=== PATIENT | male | born 1970 | race Caucasian/White ===

== ENCOUNTER 2019-04-18 14:47 | Outpatient (CLI) | payer OTHER, SELFPAY ==
--- NOTE | ~2019-04-18 | XR_ITS ---
XR hip LT 2V w AP pelvis DATE: 04/18/2019 15:16 INDICATION: Left anterior hip pain radiating down left leg since February TECHNIQUE: AP pelvis. AP and lateral views of left hip COMPARISON: None FINDINGS: The pubic symphysis and sacroiliac joints are intact. The hip joint spaces are relatively s ymmetric and relatively preserved. No pelvic fracture or left hip fracture or dislocation, avascular necrosis or bone destruction is detected. IMPRESSION: No significant abnormality Reviewed, dictated and finalized at location B. RMINATION SUPERVISOR IMPRESSION: No significant abnormality
== END 2019-04-18 14:48 | disposition home or self-care (01) ==
LOC: ANHIMG 14:53
PROVIDERS: PCP Family Medicine; Visit Provider Physician Assistant
DX: M25.552 Pain in left hip (principal)
CPT/HCPCS: 73502; 73521

== ENCOUNTER 2019-08-23 14:14 | Outpatient (CLI) | payer OTHER, SELFPAY ==
--- NOTE | ~2019-08-23 | MR_ITS ---
EXAMINATION: MR hip LT wo con DATE: 08/23/2019 15:21 INDICATION: Left hip pain. TECHNIQUE: Magnetic resonance imaging (MRI) of the left hip was performed without intravenous contras t. Sequences included axial and coronal PD-weighted FS FSE and axial T1-weighted FSE of the pelvis. S equences of the hip included 2D FIESTA, T1-weighted fast GRE, and axial, coronal, and sagittal PD-renée ghted FS FSE. COMPARISON: Pelvis and left hip radiographs 04/18/2019 FINDINGS: Bones/cartilage: There is 4 degrees levocurvature of lumbar spine. No fracture. There is pitting in the femoral necks bilaterally. There are dysplastic bumps at the junctions of the femoral heads and necks bilaterally. The left hip joint demonstrates cartilage surface irregularity. Labrum: There is a tear of the left acetabular labrum. Fluid: There is no hip joint effusion. There is mild bilateral trochanteric bursitis. Soft tissues: The gluteus minimus and gluteus medius tendons are normal. The iliopsoas tendons are normal. There is mild tendinopathy of right hamstring origin. There is a partial tear of left hamstring origin. IMPRESSION: 1. Mild left hip chondrosis. Tear of left acetabular labrum. Reviewed, dictated and finalized at location A.
== END 2019-08-23 14:15 | disposition home or self-care (01) ==
LOC: ANHIMG 14:17
PROVIDERS: PCP Family Medicine; Visit Provider Physician Assistant
DX: M25.552 Pain in left hip (principal); M25.852 Other specified joint disorders, left hip; S73.192A Other sprain of left hip, initial encounter
CPT/HCPCS: 73721

== ENCOUNTER → 2020-06-28 07:39 | Outpatient (CLI) | payer OTHER, SELFPAY ==
--- NOTE | ~2020-06-28 | XR_ITS ---
EXAMINATION: XR elbow RT min 3V DATE: 06/28/2020 08:51 INDICATION: Right elbow pain TECHNIQUE: Anteroposterior, two oblique and lateral views of the right elbow were obtained. COMPARISON: None. FINDINGS: Alignment is normal. No fracture or joint effusion. Minimal nonuniform joint space narrowing and tiny marginal osteophytes at the ulnotrochlear articulation consistent with mild osteoarthritis. Tiny ole cranon spur. Soft tissues are unremarkable. IMPRESSION: 1. No right elbow joint effusion or acute osseous abnormality. Reviewed, dictated and finalized at location B.
== END ==
PROVIDERS: PCP Family Medicine; Visit Provider Nurse Practitioner Family
DX: M25.521 Pain in right elbow (principal)
CPT/HCPCS: 73080

== ENCOUNTER → 2020-07-07 10:30 | Outpatient (CLI) | payer OTHER, SELFPAY ==
--- NOTE | ~2020-07-07 | MR_ITS ---
EXAMINATION: MR elbow RT wo con DATE: 07/07/2020 11:34 INDICATION: Pain of the muscle, fascia and tendon of the biceps post lifting injury with persistent r ight elbow pain 3 months post lifting injury. TECHNIQUE: Magnetic resonance imaging (MRI) of the right elbow was performed without intravenous cont rast. Sequences included coronal, axial, and sagittal PD-weighted FS FSE and coronal, axial, and sagi ttal PD-weighted FSE. COMPARISON: None FINDINGS: Osseous/other: Normal alignment. Normal marrow signal with no marrow edema, fracture or pathologic marrow replacing process. Mild osteoarthritis with partial thickness cartilage loss and some chondral surface regular ity along the trochlear cartilage of the distal radius. Tendons: Triceps, biceps brachii and brachialis tendons are normal. Common flexor tendon wad is normal. The c ommon extensor tendon wad is normal. Ligaments: The medial and lateral collateral ligament complexes are normal. Cubital tunnel: Cubital tunnel is unremarkable with normal signal and caliber of the ulnar nerve. Fluid: Physiologic amount of fluid the elbow joint. IMPRESSION: 1. Mild right elbow osteoarthritis. Otherwise unremarkable right upper MRI. Reviewed, dictated and finalized at location A.
== END ==
PROVIDERS: Visit Provider Nurse Practitioner Family
DX: S46.211A Strain of muscle, fascia and tendon of other parts of biceps, right arm, initial encounter (principal); X58.XXXA Exposure to other specified factors, initial encounter; M19.021 Primary osteoarthritis, right elbow
CPT/HCPCS: 73221

== ENCOUNTER 2021-06-17 00:11 | Day surgery (SDC) | payer OTHER, SELFPAY ==
[2021-06-07 14:20] VITALS: BMI 32.1
--- NOTE | 2021-06-16 11:38 | WPDANESEPP ---
Anes - Eval Pre Procedure Procedure: Operation Date: 06/17/21 11:00 Proposed Procedures p Screening Colonoscopy - Sebastian Robertson MD Date/Time: 06/16/21 11:38 Surgeon: teetee Pre Op Diagnosis: neoplasm screening Patient Data Age: 50 Gender: M Height: 1.88 m Weight: 113.5 kg Allergies Allergy/AdvReac Type Severity Reaction Status Date / Time No Known Allergies Allergy Verified 06/12/21 14:55 Home Medications Medication Instructions Recorded Confirmed Type amlodipine 5 mg tablet See Rx Instructions .ROUTE 04/08/21 06/12/21 Rx .COMPLEX #90 tablet atorvastatin 10 mg tablet 10 mg PO DAILY #90 tablet 04/08/21 06/12/21 Rx lisinopril 20 mg tablet 20 mg PO DAILY #90 tablet 04/09/21 06/12/21 Rx metoprolol succinate 25 mg 25 mg PO DAILY #30 tablet 06/12/21 06/12/21 Rx tablet,extended release 24 hr EC05/01/21 SR 70 Other studies: 05/27/21 Treadmill stress test (Dr. Dangelo) negative. Patient hx anesthesia problems: none Family hx anesthesia problems: none Results Review: All pre-operative results and documents have been reviewed as part of the pre-operative evaluation. [facility] Past Medical History Medical History HLD (hyperlipidemia) HTN (hypertension) Labral tear of hip joint Labral tear of left hip joint Lumbar back pain with radiculopathy affecting left lower extremity Obesity Surgical History Surgical History H/O rotator cuff surgery Family History Family History Mother Hypertension Other Family history of alcoholism Family history of atrial fibrillation Family history of cardiovascular disease Family history of hepatitis Family history of mental disorder Social History Social History Social History: Smoking status: Never smoker Second hand tobacco smoke exposure: No Alcohol intake: current Alcohol use details: rarely Substance use: never Substance use type: does not use 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
[2021-06-17 10:06] VITALS: BP 115/93; PULSE 101; RESP 18; TEMP 36.3; O2SAT 97; BMI 31.4
--- NOTE | 2021-06-17 10:13 | WPDGICN ---
Assessment and Plan Assessment and plan (1) Family history of colon cancer in father: Code(s): Z80.0 - Family history of malignant neoplasm of digestive organs Status: Acute Assessment and Plan: Patient has a family history of colon cancer in his father. For this reason screening colonoscopy is recommended now and should be considered at 5 year intervals in the future. GI Consult Note Consult date/time: 06/17/21 10:13 HPI: Donnell Kellogg is a 50 year old male Presents for screening colonoscopy. Patient's family history is significant that his father with colon cancer. Patient reports that his current weight appetite and bowel movements are normal. He denies abdominal pain. He has had no bleeding. Previous colonoscopy 5 years ago was reported to be unremarkable. Review of Systems Review of Systems: All systems reviewed & are unremarkable except as noted in HPI and below PMFSH Past Medical History Medical History HLD (hyperlipidemia) HTN (hypertension) Labral tear of hip joint Labral tear of left hip joint Lumbar back pain with radiculopathy affecting left lower extremity Obesity Surgical History Surgical History H/O rotator cuff surgery Family History Family History Mother Hypertension Other Family history of alcoholism Family history of atrial fibrillation Family history of cardiovascular disease Family history of hepatitis Family history of mental disorder Social History Social History Social History: Smoking status: Never smoker Second hand tobacco smoke exposure: No Alcohol intake: current Alcohol use details: rarely Substance use: never Substance use type: does not use Living arrangements: with family 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 [employer] Gender identity (if verbalized by the patient): Male Sexual Orientation (if Verbalized by the Patient): Straight or Heterosexual Spiritual care concerns: No Meds Home Medications and Allergies Home Medications Medication Instructions Recorded Confirmed Type amlodipine 5 mg tablet See Rx Instructions .ROUTE 04/08/21 06/12/21 Rx .COMPLEX #90 tablet atorvastatin 10 mg tablet 10 mg PO DAILY #90 tablet 04/08/21 06/12/21 Rx lisinopril 20 mg tablet 20 mg PO DAILY #90 tablet 04/09/21 06/12/21 Rx metoprolol succinate 25 mg 25 mg PO DAILY #30 tablet 06/12/21 06/17/21 Rx tablet,extended release 24 hr Allergies Allergy/AdvReac Type Severity Reaction Status Date / Time No Known Allergies Allergy Verified 06/17/21 10:00 Vital Signs Vital Signs - 24 hr 06/17/21 10:06 Temperature 97.3 F L Pulse Rate 101 H Respiratory Rate 18 Blood Pressure 115/93 H Pulse Oximetry 97 Exam Narrative: Physical exam reveals patient to be alert. Vital signs stable. HEENT exam is unremarkable. Patient is anicteric. Lungs are clear to auscultation and percussion. Heart is without murmur or extra sounds. Abdominal exam bowel sounds are present soft nontender with no hepatosplenomegaly digital external rectal exam is normal.
--- NOTE | 2021-06-17 10:16 | WPDANESEFPP ---
Anes - Eval Final PreProcedure Day of Procedure 06/17/21 10:16 Patient weight: obese Heart: regular rate and rhythm Lungs: clear to auscultation and normal air movement Airway: Mallampati scale class II Neurological: alert and oriented Last oral intake: >/= 8 hours ASA classification: III Emergent: no Anesthetic plan: proceed Anesthesia type and monitoring: general GIVS and standard monitoring Results Review: All pre-operative results and documents have been reviewed as part of the pre-operative evaluation. Informed Consent: The patient's anesthetic plan and its attendant risks and benefits were discussed with the patient/family/POA. Questions were solicited and answers provided to the satisfaction of the patient/family/POA.
[2021-06-17] MEDS: LACTATED RINGERS 1,000 ML 150 ML IV CONT (10:23)
[2021-06-17 10:55] VITALS: BP 113/79; PULSE 88; RESP 25; O2SAT 96
[2021-06-17 11:05] VITALS: BP 127/90; PULSE 85; RESP 23; O2SAT 96
[2021-06-17 11:15] VITALS: BP 130/95; PULSE 88; RESP 25; O2SAT 96
== END 2021-06-17 11:15 | disposition home or self-care (01) ==
PROVIDERS: PCP Family Medicine; Visit Provider Internal Medicine Gastroenterology
PROC: 0DJD8ZZ Inspection of Lower Intestinal Tract, Via Natural or Artificial Opening Endoscopic (ICD-10-PCS; CPT 45378; principal; 2021-06-17 11:00)
DX: Z12.11 Encounter for screening for malignant neoplasm of colon (principal); Z80.0 Family history of malignant neoplasm of digestive organs; E66.9 Obesity, unspecified; Z68.31 Body mass index [BMI] 31.0-31.9, adult; E78.5 Hyperlipidemia, unspecified; I10 Essential (primary) hypertension; M54.16 Radiculopathy, lumbar region
CPT/HCPCS: 45378; J2704; J7120

== ENCOUNTER 2023-02-18 14:27 | Outpatient (RCR) | payer OTHER, SELFPAY ==
--- NOTE | 2023-02-18 16:41 | PTOPEVAL1 ---
Assessment and note entered by Valente Martinez, PT, DPT Evaluation Information Assessment Status Evaluation Diagnosis low back pain Onset chronic Subjective Information Pt reports a history of back pain since he was in his twenties, he states about every 5-6 years he will get another flair up. During his flair up he states it is hard to get in/out of bed, hard to get dressed, and cannot sleep more than 3-4 hours at a time. He states he can stand no longer than 60 mins and sit no longer than 1 hour. He states in the last 6-8 weeks he has tried everything he can think of to improve it without any releif. He reports L sided radiculopathy down to the L knee. 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 Reported Pain Level Pain Score 6: Self Report Assessment PT Clinical Summary Donnell presents to therapy today for his initial evaluation with a diagnosis of low back pain. Today he demonstrates decreased active lumbar ROM in all directions limited by pain. He has painful transitions from sitting to standing, rolling over , and moving supine <> sitting EOB. Pt is limited in how long he can sit or stand d/t pain. Skilled therapy services are indicated for pain management, to improve ROM, and to return to PLOF. Plan of Care Interventions Electrical Stimulation,Gait Training,Hot Pack/Cold Pack,Manual Therapy,Mechanical Traction,Neuro Re- education,Patient/Caregiver Educati,Therapeutic Activities,Therapeutic Exercise PT Services Indicated Yes Treatment Frequency and 1x/wk for 4 visits if pt plans to return. Pt Duration states he may go somewhere else where his copay is lower These treatments will address the objective and functional deficits as defined above. The patient will be advanced safely and appropriately in order for the patient to progress towards his/her prior level of function. Additional exercises will be introduced and as well as a comprehensive home exercise program upon discharge, if needed, ?to ensure carryover of functional gains achieved in the clinic. This treatment plan has been reviewed and agreement upon by the patient.
--- NOTE | 2023-04-07 13:39 | PTOPDC ---
Assessment and note entered by Valente Martinez, PT, DPT Evaluation Information Assessment Status Discharge - Pt Not Present Diagnosis low back pain Onset chronic Subjective Information Called pt on 03/26 and LVM for follow up as pt was going to try another facility to get therapy at. Have not heard from pt at this time. Assessment PT Clinical Summary Pt was evaluated on 02/18/23 and has not returned since. He will be discharged as this time d/t no further therapy attendance.
== END 2023-04-07 13:56 | disposition home or self-care (01) ==
LOC: ANHGOSHPT 14:27
PROVIDERS: PCP Family Medicine; Visit Provider Family Medicine
DX: M54.50 Low back pain, unspecified (principal)
CPT/HCPCS: 97014; 97110; 97161; G0283

== ENCOUNTER → 2023-03-12 15:11 | Outpatient (CLI) | payer OTHER, SELFPAY ==
--- NOTE | ~2023-03-12 | XR_ITS ---
EXAMINATION: XR thoracic spine 3V, XR lumbar spine min 4V DATE: 03/12/2023 15:54 INDICATION: Unspecified low back pain TECHNIQUE: 1. One AP, lateral and lateral swimmer's views of the thoracic spine were obtained. 2. AP, lateral, left and right oblique and coned-down lateral lumbosacral views of the lumbar spine w ere obtained. COMPARISON: None. FINDINGS: Thoracic spine: Alignment is normal. Vertebral body heights are normal. Mild disc height loss at T4-T5 through T9-T10 and at T11-T12. Visualized portion of the lungs are clear with no pleural effusion or pneumothorax. Cardiomediastinal silhouette is normal. Lumbar spine: Alignment is normal. Vertebral body heights are normal. L5 is partially sacralized on the left. Mild disc height loss at L3-L4, L4-L5 and L5-S1. Multilevel mild lumbar facet osteoarthritis. There is als o mild bilateral sacroiliac osteoarthritis. IMPRESSION: 1. Mild thoracic and lumbar spondylosis. Reviewed, dictated and finalized at location A. NT DESPATCH OPERATOR IMPRESSION: 1. Mild thoracic and lumbar spondylosis.
== END ==
PROVIDERS: PCP Family Medicine; Visit Provider Physician Assistant
DX: M47.894 Other spondylosis, thoracic region (principal); M47.896 Other spondylosis, lumbar region
CPT/HCPCS: 72072; 72110

== ENCOUNTER 2023-11-04 10:25 | Outpatient (CLI) | payer OTHER, SELFPAY ==
--- NOTE | ~2023-11-04 | MR_ITS ---
Procedure: MR lumbar spine wo con Ordering provider: Elizabeth Flores, ARTERIAL EMBALMER History: . Lumbar radicular pain . Comparison: None. Technique: MRI lumbar spine without contrast. FINDINGS: SPINAL CORD: Normal. The cord ends at the level of T12-L1. VERTEBRAL BODIES: Normal height and alignment. No compression fracture. Normal marrow signal. Hemangi oscar is seen in T12 and L5. DISK SPACES: Loss of signal on T2-weighted images seen at the level of L4-L5 and L5-S1 which may indicate degenera tive changes. Annulus tear is seen at the 2 levels. STENOSIS: None. Mild disc bulge at the level of L4-L5. No significant intervertebral foraminal narrowing or compressi on. Central Disc protrusion at the level of L5-S1 with no significant narrowing of the foramina or compre ssion. PARASPINOUS SOFT TISSUES: Normal. IMPRESSION: No compression fracture or stenosis of the lumbar spine. Annulus tear at the level of L4-L5 and L5-S1. Disc bulge at the level of L4-L5 with no definite root compression. Disc protrusion at the level of L5-S1 with no definite root compression. Hemangioma in T12 and L5. Reviewed, dictated and finalized at location A.
== END 2023-11-04 10:26 ==
PROVIDERS: PCP Family Medicine; Visit Provider Nurse Practitioner Family
DX: M54.16 Radiculopathy, lumbar region (principal); M51.37 Other intervertebral disc degeneration, lumbosacral region; M51.36 Other intervertebral disc degeneration, lumbar region; D18.09 Hemangioma of other sites
CPT/HCPCS: 72148

== ENCOUNTER 2024-08-25 14:59 | Outpatient (CLI) | payer OTHER, SELFPAY ==
--- OUTSIDE RECORDS SUMMARY | 2024-08-25 15:03 | XMS_ITS | Referral Summary ---
Author Organization [facility] Virtual Care Address [address] [place] [phone] Phone Care Team Providers Care Wash Driller Helper Name Role Phone Hossein Rausch MD Primary Care Provider Allergies No known active allergies Medications atorvastatin (LIPITOR) 10 mg tablet Take 1 tablet (10 mg total) by mouth daily [address] (VOLTAREN) 75 mg EC tablet diclofenac sodium 75 mg tablet,delayed release TAKE 1 TABLET BY MOUTH TWICE A DAY Active gabapentin (NEURONTIN) 100 mg capsule Take 1 capsule (100 mg total) by mouth 2 (two) times a day 1 Active lisinopriL (PRINIVIL,ZESTR IL) 20 mg tablet Take 1 tablet (20 mg total) by mouth daily 1 Active metoprolol XL (TOPROL-XL) 25 mg extended release tablet Take 1 tablet (25 mg total) by mouth daily 4 Active amLODIPine (NORVASC) 10 mg tablet 4 Active benzonatate (TESSALON) 200 mg capsuleIndicati ons:Acute cough Take 1 capsule (200 mg total) by mouth 3 (three) times a day as needed for cough keep tessalon out of reach of children, especially children under the age of 10, due to possible serious risk such as if ingested by children under the age of 10. 30 capsule 4 Active Active Problems Problem Noted Date Diagnosed Date Chest pain 06/23/2014 Closed fracture of lumbar vertebra 06/22/2012 Lumbago 06/17/2012 Post-traumatic headache 05/04/2012 Social History Tobacco Use Types Packs/Day Years Used Date Smoking Tobacco: Never Sex and Gender Information Value Date Recorded Sex Assigned at Not on file Legal Sex Male 3:09 AM BLOCKMAN Gender Identity Not on file Sexual Orientation Not on file Last Filed Vital Signs Vital Sign Reading Time Taken Comments Blood Pressure 120/78 03/16/2024 11:13 AM BLOCKMAN Pulse 90 03/16/2024 11:13 AM BLOCKMAN Temperature 37.2 C (98.9 F) 03/16/2024 11:13 AM BLOCKMAN Respiratory Rate 20 03/16/2024 11:13 AM BLOCKMAN Oxygen Saturation 98% 03/16/2024 11:13 AM BLOCKMAN Inhaled Oxygen Concentration - - Weight 127.5 kg (281 lb) 03/16/2024 11:13 AM BLOCKMAN Height 185.4 cm (6' 1 ) 06/23/2014 10:13 AM CDT Body Mass Index 37.07 06/23/2014 10:13 AM CDT Plan of Treatment Not on file Insurance [employer] Address: [facility] [id number] [place] [address] [employer] Address: [address] [place] [address] [facility] [employer] Address: [address] [place] [address] Care Teams Wash Driller Helper Relationship Specialty Start Date End Date Hossein Rausch MD [address] [facility] [address] [place] [address] PCP - General Family Medicine 08/21/20
--- OUTSIDE RECORDS SUMMARY | 2024-08-25 15:03 | XMS_ITS | Clinical Summary ---
Author Organization [facility] Virtual Care Address [address] [place] [phone] Phone Care Team Providers Care Monkey Keeper Name Role Phone Hossein Rausch MD Primary [...] vertebra 06/22/2012 Lumbago 06/17/2012 Post-traumatic headache 05/04/2012 Surgical History Surgery Date Site/Laterality Comments FLUORO GUIDED INJECTION SHOULDER [facility] Medical History Medical History Date Comments Personal history of other di seases of the circulatory system History of hypertension - (A dded by TW Conv) Personal history of other en docrine, nutritional and metabolic disease History of hyperlipi demia - (Added by TW Conv) Anxiety disorder Anxiety - (Adde d by TW Conv) Family History Medical History Relation Name Comments Cystic fibrosis Brother Cystic Fibro sis - (Added by TW Conv) Hypertension Mother Hypertension - (Added by TW Conv) Relation Name Status Comments Brother Mother Social History Tobacco Use Types Packs/Day Years Used Date Smoking Tobacco: Never Sex and Gender Information Value Date Recorded Sex Assigned at Not on file Legal Sex Male 3:09 AM UNIX CONSULTANT Gender Identity Not on file Sexual Orientation Not on file Obstetrics History Last Filed Vital Signs Vital Sign Reading Time Taken Comments Blood Pressure 120/78 03/16/2024 11:13 AM UNIX CONSULTANT Pulse 90 03/16/2024 11:13 AM UNIX CONSULTANT Temperature 37.2 C (98.9 F) 03/16/2024 11:13 AM UNIX CONSULTANT Respiratory Rate 20 03/16/2024 11:13 AM UNIX CONSULTANT Oxygen Saturation 98% 03/16/2024 11:13 AM UNIX CONSULTANT Inhaled Oxygen Concentration - - Weight 127.5 kg (281 lb) 03/16/2024 11:13 AM UNIX CONSULTANT Height 185.4 cm (6' 1 ) 06/23/2014 10:13 AM CDT Body Mass Index 37.07 06/23/2014 10:13 AM CDT Plan of Treatment Health Maintenance Due Date Last Done Comments Colon Cancer Screening-Colonoscopy 1969 Depression Screening 1969 Hepatitis C Screening 1969 Prostate Cancer Screening-PSA 1969 DTaP/Tdap/Td Vaccine (1 - Tdap) 1980 Hepatitis B Screening 11/21/1987 Regular Well Visit/Exam 18-64 11/21/1987 Zoster Vaccine (1 of 2) 11/21/2019 Covid-19 Vaccine (4 - 2023-2 5 season) 2023 02/01/2021, 05/07/2020, 04/17/2020 Influenza Vaccine Completed 01/13/2024, 01/13/2022 Pneumococcal vaccine <65 Aged Out No longer eligible based on patient's age to complete this topic Insurance [employer] Address: [address] [phone] [employer] Address: [facility] [id number] [place] [phone] [employer] Address: [facility] [address] [place] [address] Care Teams Monkey Keeper Relationship Specialty Start Date End Date Hossein Rausch MD [address] [place] [address] PCP - General Family Medicine 08/21/20
--- NOTE | 2024-09-07 15:38 | WPDHOLTEREM ---
Holter/Event Monitor Holter/Event Monitor Date of procedure: 08/25/24 Holter/Event Procedure: 3-7 Day Holter Monitor Indications: Palpitations Conclusion: 1. 3 days holter monitor on 08/25/24. 2. Predominant rhythm is sinus rhythm. HR range 55-156 bpm; average HR 78 bpm. 3. There are rare premature supraventricular complexes and rare supraventricular couplets. There are 2 episodes of supraventricular tachycardia with fastest at 156 bpm and longest lasting 13 beats. 4. There are rare premature ventricular complexes and rare ventricular couplets. No ventricular tachycardia. 5. No significant pauses greater than 3 seconds. 6. No symptoms available for correlation.
== END 2024-08-25 15:00 | disposition home or self-care (01) ==
PROVIDERS: PCP Family Medicine; Visit Provider Student in an Organized Health Care Education/Training Program
DX: R00.2 Palpitations (principal); R42 Dizziness and giddiness
CPT/HCPCS: 93242

== ENCOUNTER 2024-10-12 13:10 | Outpatient (CLI) | payer OTHER, SELFPAY ==
--- NOTE | ~2024-10-12 | US_ITS ---
EXAMINATION: US carotid duplex BI DATE: 10/12/2024 16:16 INDICATION: Dizziness TECHNIQUE: Grayscale, color Doppler, and pulsed Doppler images of the cervical carotid arteries were obtained. The degree of vessel stenosis is placed in one of the following categories: normal, <50%, 5 0-69%, >=70% but less than near-occlusion, near-occlusion, or total occlusion. Note that percent sten osis relative to normal distal artery lumen diameter is indirectly measured from velocity measurement s as described by Ector, et al. Radiology 2003; 229:340-346. COMPARISON: None. FINDINGS: RIGHT: The right common carotid artery (CCA) peak systolic velocity (PSV) is 93 cm/s. The right internal car otid artery (ICA) PSV is 88 cm/s. The right ICA end-diastolic velocity (EDV) is 23 cm/s. The right IC A/CCA PSV ratio is 0.9. Grayscale and color Doppler images demonstrate no evident stenosis or plaque in the ICA. The external carotid artery (ECA) PSV is 129 cm/s. There is antegrade flow in the right v ertebral artery. LEFT: The left CCA PSV is 129 cm/s. The left ICA PSV is 83 cm/s. The left ICA EDV is 34 cm/s. The left ICA/ CCA PSV ratio is 0.6. Grayscale and color Doppler images yield demonstrate no evident stenosis or ky que in the ICA. The ECA PSV is 124 cm/s. There is antegrade flow in the left vertebral artery. IMPRESSION: 1. No evident plaque or stenosis in the right internal carotid artery. 2. No evident plaque or stenosis in the left internal carotid artery. Reviewed, dictated and finalized at location A.
--- OUTSIDE RECORDS SUMMARY | 2024-10-12 13:16 | XMS_ITS | Clinical Summary ---
Author Organization [facility] Virtual Care Address [address] [place] [phone] Phone Care Team Providers Care Digital Field Service Technician Name Role Phone Hossein Rausch MD Primary [...] age of 9. 29 capsule 4 Active Additional Information Patient not taking.Reported on 09/27/2024 Active Problems Problem Noted Date Diagnosed Date Chest pain 06/23/2014 Closed fracture of lumbar vertebra 06/22/2012 Lumbago 06/17/2012 Post-traumatic headache 05/04/2012 Encounters Date Type Department Care Team Description 09/27/2024 8:00 AM CDT Office Visit [facility] Medical [facility] Cardiology [address] [place] [address] Efrem Jones MD Lipid screening (Primary Dx); SVT (supraventricular tachycardia); Palpitations; Shortness of breath; Dizzy from Last 3 Months Surgical History Surgery Date Site/Laterality Comments FLUORO GUIDED INJECTION SHOULDER RIGHT 02/18/2022 Ri ght Medical History Medical History Date Comments Personal [...] on file Legal 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 Gender Identity Not on file Sexual Orientation Not on file Obstetrics History Last Filed Vital Signs Vital Sign Reading Time Taken Comments Blood Pressure 126/86 09/27/2024 7:58 AM CDT Pulse 80 09/27/2024 7:58 AM CDT Temperature 37.2 C (98.9 F) 03/16/2024 11:13 AM CLAMSHELL ENGINEER Respiratory Rate 18 09/27/2024 7:58 AM CDT Oxygen Saturation 96% 09/27/2024 7:58 AM CDT Inhaled Oxygen Concentration - - Weight 123.8 kg (273 lb) 09/27/2024 7:58 AM CDT Height 188 cm (6' 2) 09/27/2024 7:58 AM CDT Body Mass Index 35.05 09/27/2024 7:58 AM CDT Plan of Treatment Health Maintenance Due Date Last Done Comments Colon Cancer Screening-Colonoscopy 1969 Depression Screening 1969 Hepatitis C Screening 1969 Prostate Cancer Screening-PSA 1969 DTaP/Tdap/Td Vaccine (1 - Tdap) 1980 Hepatitis B Screening 11/21/1987 Regular Well Visit/Exam 18-64 11/21/1987 Zoster Vaccine (1 of 2) 11/21/2019 Covid-19 Vaccine (4 - 2023-2 5 season) 2023 02/01/2021, 05/07/2020, 04/17/2020 Influenza Vaccine (#1) 2024 , 01/13/2022 Pneumococcal vaccine <65 Aged Out No longer eligible based on patient's age to complete this topic Procedures Procedure Name Priority Date/Time Associated Diagnosis Comments POCT LIPID PANEL Routine 09/27/2024 7:56 AM CDT Lipid screening ELECTROCARDIOGRAM REPORT Routine 09/27/2024 SVT (supraventricular tachycardia) Palpitations from Last 3 Months Results * (ABNORMAL) POCT lipid panel (09/27/2024 7:56 AM CDT) Cholesterol, POC 184 <200 MG/DL HDL, POC 44 >=40 mg/dL Triglycerides, POC 150(A) <=149 mg/dL LDL Cholesterol POC 110 <=129 mg/dL Chol/HDL Ratio, POC 2.5 NONE Non-HDL Cholesterol, POC 140 NONE mg/dL Cholesterol Total, POC 184 30 - 199 mg/dL Capillary blood 09/27/2024 7 :56 AM CDT us Efrem Jones MD POINT OF CARE TEST ORDERABLES Fi nal Result * Electrocardiogram Report (09/27/2024) 09/27/2024 us Efrem Jones MD ECG ORDERABLES Edited Result - Final from Last 3 Months Insurance [facility] [employer] Address: [address] [place] [address] [employer] [facility] [facility] Address: [address] [place] [address] [employer] [facility] [employer] [facility] [employer] Address: [address] [place] [address] Care Teams Digital Field Service Technician Relationship Specialty Start Date End Date Hossein Rausch MD [address] [facility] [address] [place] [address] PCP - General Family Medicine 08/21/20
--- OUTSIDE RECORDS SUMMARY | 2024-10-12 13:16 | XMS_ITS | Referral Summary ---
Author Organization [facility] Virtual Care Address [address] [place] [phone] Phone Care Team Providers Care Scaffolder Name Role Phone Hossein Rausch MD Primary Care Provider Encounters Date Type Department Care Team Description 09/27/2024 8:00 AM CDT Office Visit [facility] Medical [facility] Cardiology [address] [facility] [address] [place] [address] Efrem Jones MD Lipid screening (Primary Dx); SVT (supraventricular tachycardia); Palpitations; Shortness of breath; Dizzy from Last 3 Months Allergies No known active allergies Medications atorvastatin [...] under the age of 10. 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 Gender Identity Not on file Sexual Orientation Not on file Last Filed Vital Signs Vital Sign Reading Time Taken Comments Blood Pressure 126/86 09/27/2024 7:58 AM CDT Pulse 80 09/27/2024 7:58 AM CDT Temperature 37.2 C (98.9 F) 03/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 Respiratory Rate 18 09/27/2024 7:58 AM CDT Oxygen Saturation 96% 09/27/2024 7:58 AM CDT Inhaled Oxygen Concentration - - Weight 123.8 kg (273 lb) 09/27/2024 7:58 AM CDT Height 188 cm (6' 2) 09/27/2024 7:58 AM CDT Body Mass Index 35.05 09/27/2024 7:58 AM CDT Plan of Treatment Not on file Procedures Procedure Name Priority Date/Time Associated Diagnosis [...] Capillary blood 09/27/2024 7 :56 AM CDT Efrem Jones MD POINT OF CARE TEST ORDERABLES Fi nal Result * Electrocardiogram Report (09/27/2024) 09/27/2024 Efrem Jones MD ECG ORDERABLES Edited Result - Final from Last 3 Months Insurance [facility] [employer] [employer] Address: [address] [phone] [facility] [employer] [employer] Address: [facility] [id number] [place] [address] [employer] [employer] Address: [facility] [id number] [place] [address] Care Teams Scaffolder Relationship Specialty Start Date End Date Hossein Rausch MD [address] [facility] [address] [place] [address] PCP - General Family Medicine 08/21/20
== END 2024-10-12 13:11 | disposition home or self-care (01) ==
PROVIDERS: PCP Family Medicine; Visit Provider Internal Medicine
DX: R42 Dizziness and giddiness (principal)
CPT/HCPCS: 93880